=== PATIENT | male | born 1950 | race Caucasian/White ===

== ENCOUNTER 2019-11-01 11:28 | Inpatient (IN) | payer OTHER | END 2019-12-17 10:50 | DRG 884 | LOC: ER 11:28 → EROBS 13:48 → SBH 15:30 | PROVIDERS: ADMIT Psychiatry & Neurology Psychiatry | DX: F03.91 Unspecified dementia, unspecified severity, with behavioral disturbance (principal); N17.9 Acute kidney failure, unspecified; I10 Essential (primary) hypertension; Z66 Do not resuscitate; D64.9 Anemia, unspecified; R73.9 Hyperglycemia, unspecified; E87.6 Hypokalemia; E86.0 Dehydration; R00.0 Tachycardia, unspecified; Z88.1 Allergy status to other antibiotic agents; Z03.818 Encounter for observation for suspected exposure to other biological agents ruled out ==